=== PATIENT | female | born 1960 | race Caucasian/White ===

== ENCOUNTER 2017-02-21 00:57 | Emergency (ER) | payer BC ==
[~2017-02-21] VITALS: Ht 165.1 cm; Wt 56.7 kg
[~2017-02-21 00:57] MED LIST: ADVIL; METOPROLOL; TYLENOL
--- NOTE | 2017-02-21 01:02 | NUR ---
PT WALKED INTO ER C/O FALLING AND HURTING LT LEG AND RT WRIST.PT STATES FEELING SOME NUMBNESS. PT IS ALERT, ORIENTED X 4, NO RESP DISTRESS NOTED OR REPORTED UPON ASSESSMENT... MD AT BEDSIDE... Addendum: 02/21/17 at 0308 by DES pt requested knee immobilizer, FARIDEH advised not knee immobilizer not necessary for condition pt insisted, ortho equipment placed on pt, advised if feeling numbness or tingling in left toes or foot, advised to loosen brace... pt advised immobilizer fits well, is not tight, states it is helping...
--- NOTE | 2017-02-21 02:10 | NUR ---
Patient discharged to home in stable conditon. Written and verbal after care instructions given. Patient verbalizes understanding of instructions. pt walked out of ER unassisted with belongings at side...
--- NOTE | 2017-02-21 02:35 | NUR ---
[facility], advised she will have scans done at her ortho MD office 02/21/17 morning...pt requesting to have MRI done, advised facility not equiped with MRI machinary...
[2017-02-21] MEDS ORDERED: IBUPROFEN 800 MG TABLET PO ONE (02:45)
[2017-02-21] MEDS ORDERED: IBUPROFEN 800 MG TABLET ONE (02:46)
[2017-02-21 03:14] VITALS: BP 136/98
== END 2017-02-21 03:14 | disposition home or self-care (01) ==
LOC: ER 01:00
DX: S76.112A Strain of left quadriceps muscle, fascia and tendon, initial encounter (principal); I10 Essential (primary) hypertension; G89.29 Other chronic pain; V89.2XXA Person injured in unspecified motor-vehicle accident, traffic, initial encounter; Y93.89 Activity, other specified; Y99.8 Other external cause status; Y92.89 Other specified places as the place of occurrence of the external cause
CPT/HCPCS: A4663

== ENCOUNTER 2017-10-16 23:36 | Emergency (ER) | payer BC ==
[~2017-10-16] VITALS: Ht 165.1 cm; Wt 56.7 kg
--- NOTE | 2017-10-17 00:25 | NUR ---
DR MIXON INTO EVAL PATIENT
[2017-10-17] MEDS ORDERED: MAG HYDROX/AL HYDROX/SIMETH 30 ML LIQUID UDC PO ONE (00:30)
[2017-10-17] MEDS ORDERED: DICYCLOMINE HCL 10 MG/5 ML UDC LIQ PO ONE (00:30)
[2017-10-17] MEDS ORDERED: ONDANSETRON ODT 4 MG TAB.RAPDIS SL ONE (00:30)
[2017-10-17] MEDS ORDERED: ONDANSETRON ODT 4 MG TAB.RAPDIS ONE (00:43)
--- NOTE | 2017-10-17 00:45 | NUR ---
PATIENT STATES "I FEEL ALOT BETTER NOW. CAN I GO HOME?"
[2017-10-17] MEDS ORDERED: MAG HYDROX/AL HYDROX/SIMETH 30 ML LIQUID UDC ONE (00:54)
[2017-10-17] MEDS ORDERED: DICYCLOMINE HCL 10 MG/5 ML UDC LIQ ONE (00:54)
--- NOTE | 2017-10-17 00:54 | NUR ---
Patient discharged to home in stable conditon. Written and verbal after care instructions given. Patient verbalizes understanding of instructions. WALKED OUT OF ER WITH NO DISTRESS NOTED
[2017-10-17 00:55] VITALS: BP 108/86
== END 2017-10-17 00:56 | disposition home or self-care (01) ==
LOC: ER 23:37
DX: K20.9 Esophagitis, unspecified (principal); I10 Essential (primary) hypertension; F17.200 Nicotine dependence, unspecified, uncomplicated
CPT/HCPCS: 99284; A4663; Q0162

== ENCOUNTER 2021-01-02 17:10 | Emergency (ER) | payer BC ==
[~2021-01-02] VITALS: Ht 167.6 cm; Wt 61.2 kg
[~2021-01-02 17:10] MED LIST changes: -METOPROLOL
[2021-01-02] MEDS ORDERED: HYDROCODONE/APAP 5-325MG TABLET ONE (17:56)
[2021-01-02] MEDS ORDERED: HYDROCODONE/APAP 5-325MG TABLET PO ONE (18:00)
--- NOTE | 2021-01-02 20:00 | NUR ---
Patient discharged to home in stable condition. Written and verbal after care instructions given. Patient verbalizes understanding of instructions. Stressed follow up or return to ER for worsening s/s.PT WALKS IN STEADY GAIT. PT NOT DRIVING.
== END 2021-01-02 20:03 | disposition home or self-care (01) ==
LOC: ER 17:10
DX: S09.90XA Unspecified injury of head, initial encounter (principal); S22.079A Unspecified fracture of T9-T10 vertebra, initial encounter for closed fracture; S22.089A Unspecified fracture of T11-T12 vertebra, initial encounter for closed fracture; S13.9XXA Sprain of joints and ligaments of unspecified parts of neck, initial encounter; S93.602A Unspecified sprain of left foot, initial encounter; S39.012A Strain of muscle, fascia and tendon of lower back, initial encounter; S23.3XXA Sprain of ligaments of thoracic spine, initial encounter; V43.52XA Car driver injured in collision with other type car in traffic accident, initial encounter; Y93.89 Activity, other specified; Y92.481 Parking lot as the place of occurrence of the external cause
CPT/HCPCS: 70450; 72125; 72131; 73610; 73630; A4663

== ENCOUNTER 2021-02-22 08:18 | Emergency (ER) | payer BC ==
[~2021-02-22] VITALS: Ht 165.1 cm; Wt 61.2 kg
--- NOTE | 2021-02-22 08:30 | NUR ---
MD at bedside for assessment, right ring finger swollen with two rings stuck, both rings cut at this time
[2021-02-22] MEDS ORDERED: HYDROCODONE/APAP 5-325MG TABLET ONE (09:11)
[2021-02-22] MEDS ORDERED: NEOMY/BACITRA/POLYMYXIN B OINT UD PACKET TP ONE ×2 (09:11→09:15)
[2021-02-22] MEDS ORDERED: HYDROCODONE/APAP 5-325MG TABLET PO ONE (09:15)
[2021-02-22] MEDS ORDERED: CEPH500C2 PO (09:26)
[2021-02-22] MEDS ORDERED: HYDR-3972 PO (09:37)
[2021-02-22] MEDS ORDERED: IBUP-1953 PO (09:37)
--- NOTE | 2021-02-22 09:46 | NUR ---
Patient discharged to home in stable condition. No signs of distress, able to ambulate. Written and verbal after care instructions given. Patient verbalizes understanding of instructions. Stressed follow up or return to ER for worsening s/s.
[2021-02-22 09:50] VITALS: BP 140/67
== END 2021-02-22 09:50 | disposition home or self-care (01) ==
LOC: ER 08:18
DX: S60.444A External constriction of right ring finger, initial encounter (principal); W49.04XA Ring or other jewelry causing external constriction, initial encounter; Y92.89 Other specified places as the place of occurrence of the external cause; R60.0 Localized edema; I10 Essential (primary) hypertension
CPT/HCPCS: A4663